=== PATIENT | male | born 2000 | race Two or more races ===

== ENCOUNTER 2022-03-13 16:06 | Emergency (ER) | payer MEDICAID ==
[~2022-03-13] VITALS: Ht 177.8 cm; Wt 100.9 kg
[2022-03-13 17:04] VITALS: BP 132/83
[2022-03-13] MEDS ORDERED: cefTRIAXone W LIDOCAINE 500 MG IM IM ONE (17:45)
[2022-03-13] MEDS ORDERED: AZITHROMYCIN 250 MG TAB PO ONE (17:45)
[2022-03-13] MEDS ORDERED: LIDOCAINE 1% HCL (LOCAL ANESTH.) INJ 20ML MDV ONE (18:03)
[2022-03-15 07:06] LABS: RPR Non Reactive (Non Reactive)
== END 2022-03-13 18:21 | disposition home or self-care (01) ==
LOC: ER 16:12
DX: Z20.2 Contact with and (suspected) exposure to infections with a predominantly sexual mode of transmission (principal)
CPT/HCPCS: 86592; 96372; 99283; J0696; J2001